=== PATIENT | female | born 1930 | race Caucasian/White ===

== ENCOUNTER 2016-11-10 11:01 | Emergency (ER) | payer OTHER ==
[~2016-11-10] VITALS: Ht 170.2 cm; Wt 82.0 kg
[2016-11-10 11:08] VITALS: BP 124/83; PULSE 104; RESP 17; TEMP 98.4; O2SAT 95
--- NOTE | 2016-11-10 13:24 | RADRPT ---
EXAM DATE/TIME: 11/10/2016 13:00 [place] COMPARISON: No previous studies available for comparison. INDICATIONS : Left leg swelling. MEDICAL HISTORY : Gastroesophageal reflux disease. Hypertension. Anemia. Myeloproliferative disorder. SURGICAL HISTORY : Hysterectomy. Cholecystectomy. Appendectomy. Cataract extraction. Thrombocytosis. Myeloproliferative . Polycythemia. ENCOUNTER: Initial ACUITY: 3 days PAIN SCORE: 3/10 LOCATION: Left leg. TECHNIQUE: Venous ultrasound of the leg was performed from the inguinal ligament to the proximal calf. Real-bacilio e, color Doppler and spectral tracing, compression and augmentation techniques were used. FINDINGS: There is normal compressibility of the deep venous system from the inguinal region to the proximal ca lf. No echogenic clot is seen in the lumen of the common femoral, femoral, popliteal, and posterior tibial veins. There is a normal response of the venous system to proximal and distal augmentation an d respiration. CONCLUSION: 1. No sonographic evidence for left lower extremity DVT. Hira Mcpherson MD on November 10, 2016 at 13:22 Board Certified Radiologist. This report was verified electronically.
--- NOTE | 2016-11-10 13:45 | PD ---
HPI Chief Complaint: Edema Time Seen by Provider: 12:42 Travel History International Travel<30 days: No Contact w/Intl Traveler<30days: No Traveled to known affect area: No History of Present Illness HPI This is an 86-year-old female who presents to the emergency department with a discrete area of warmth and swelling on the left leg, constant, moderate severity, for 2 days. She denies any associated chest pain, shortness of breath or fevers or chills. 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 Chan. She has never had a blood clot before. PFSH Past Medical History Hx Anticoagulant Therapy: Yes (81MG ASA ) Cardiovascular Problems: No Chemotherapy: No Cerebrovascular Accident: No Diabetes: No Diminished Hearing: No Hypertension: Yes Medical other: Yes (MYELOFIBROSIS) Respiratory: No Tetanus Vaccination: > 5 Years Influenza Vaccination: Yes ?: Not Menopausal: Yes Past Surgical History Appendectomy: Yes Cholecystectomy: Yes Hysterectomy: Yes Social History Alcohol Use: No Tobacco Use: Yes Substance Use: No Allergies-Medications (Allergen,Severity, Reaction): Coded Allergies: No Known Allergies (Unverified , 11/10/16) Review of Systems Except as stated in HPI: all other systems reviewed are Neg Physical Exam Narrative GENERAL:Well appearing, no acute distress SKIN: Discrete area of erythema and warmth along the medial aspect of the distal left lower extremity HEAD: Atraumatic. Normocephalic. EYES: Pupils equal and round. No injection or drainage. ENT: Moist mucous membranes NECK: Trachea midline. CARDIOVASCULAR: Regular rate and rhythm. No murmur appreciated. RESPIRATORY: Clear to auscultation. Breath sounds equal bilaterally. GASTROINTESTINAL: Abdomen soft, non-tender, nondistended. MUSCULOSKELETAL: No obvious deformities. NEUROLOGICAL: Awake and alert. No obvious cranial nerve deficits. Moving all extremities. PSYCHIATRIC: Appropriate mood and affect; insight and judgment normal. Data Data Last Documented VS Vital Signs Date Time Temp Pulse Resp B/P (MAP) Pulse Ox O2 Delivery O2 Flow Rate FiO2 11/10/16 11:08 98.4 104 17 124/83 (97) 95 Orders Orders Us Leg Venous Doppler (11/10/16 ) MDM Medical Decision Making Medical Screen Exam Complete: Yes Emergency Medical Condition: Yes Interpretation(s) Ultrasound: No DVT Differential Diagnosis DVT, superficial thrombophlebitis, cellulitis Narrative Course This is an 86-year-old female who presents to the emergency department with swelling involving the left lower extremity. She has evidence of a superficial thrombophlebitis on physical exam. Ultrasound was obtained to exclude associated deeper thrombosis. She has no clinical symptoms of pulmonary embolism. Ultrasound was negative. I think patient can be discharged with conservative management. Diagnosis Primary Impression: Superficial thrombophlebitis Qualified Codes: I80.02 - Phlebitis and thrombophlebitis of superficial vessels of left lower extremity Patient Instructions: General Instructions Additional Instructions: If you develop severe chest pain, shortness of breath, sweating, lightheadedness , dizziness or difficulty breathing return to the emergency department immediately. Followup with your primary care physician in 2-3 days if your symptoms are not resolved. Med/Other Pt SpecificInfo: No Change to Meds Disposition: 01 DISCHARGE HOME Condition: Stable Dagmar López MD Nov 10, 2016 13:45
== END 2016-11-10 14:32 | disposition home or self-care (01) ==
LOC: NEPC 11:01
DX: I80.02 Phlebitis and thrombophlebitis of superficial vessels of left lower extremity (principal); D75.81 Myelofibrosis; I10 Essential (primary) hypertension; Z72.0 Tobacco use
CPT/HCPCS: 93971; 99284